=== PATIENT | male | born 1985 | race Caucasian/White ===

== ENCOUNTER 2020-12-01 11:40 | Emergency (ER) | payer OTHER ==
[2020-12-01 12:08] VITALS: BP 131/75; PULSE 77; RESP 18; TEMP 98.6
--- NOTE | 2020-12-01 12:48 | ED ---
Lower Extremity Injury HPI - General Chief Complaint: Extremity Injury, Lower Stated Complaint: rt knee pain Time Seen by Provider: 12/01/20 12:21 Source: patient Mode of arrival: ambulatory Limitations: no limitations - History of Present Illness Initial Comments: Patient is a 35-year-old male presenting to emergency Department with complaints of right knee pain for the past 3 days. He denies any falls or trauma. He states the pain is mostly over the anterior aspect of his knee. He denies any fever or chills, no swelling of the knee. Denies any previous surgeries or injuries of the knee. He states that his employer made him come in to get checked because he saw him limping today. He has no further complaints at this time. His vital signs are stable upon arrival. - Related Data Allergies Allergy/AdvReac Type Severity Reaction Status Date / Time No Known Allergies Allergy Verified 12/01/20 12:08 Review of Systems ROS Statement: Those systems with pertinent positive or pertinent negative responses have been documented in the HPI. ROS Other: All systems not noted in ROS Statement are negative. Past Medical History Past Medical History: No Reported History History of Any Multi-Drug Resistant Organisms: None Reported Past Surgical History: Orthopedic Surgery Past Psychological History: No Psychological Hx Reported Smoking Status: Never smoker Past Alcohol Use History: None Reported Past Drug Use History: None Reported General Exam - General Exam Comments Initial Comments: GENERAL: Patient is well-developed and well-nourished. Patient is nontoxic and in no acute distress. HEAD: Atraumatic, normocephalic. EYES: Pupils equal round and reactive to light, extraocular movements intact, sclera anicteric, conjunctiva are normal. Eyelids were unremarkable. ENT: TMs normal, nares patent, oropharynx clear without exudates. Moist mucous membranes. NECK: Normal range of motion, supple without lymphadenopathy or JVD. LUNGS: Unlabored respirations. Breath sounds clear to auscultation bilaterally and equal. No wheezes rales or rhonchi. HEART: Regular rate and rhythm without murmurs, rubs or gallops. ABDOMEN: Soft, nontender, normoactive bowel sounds. No guarding, no rebound. No masses appreciated. : Deferred MUSCULOSKELETAL: Patient has some mild tenderness over the right patellar tendon, lateral aspect of the knee. There is no swelling, no erythema, no signs of infection. He is neurovascular intact. No clubbing or cyanosis. NEUROLOGICAL: Patient is alert and oriented x 3. Motor and sensory are also intact. Cranial nerves II through XII grossly intact. Symmetrical smile. Normal speech, normal gait. PSYCH: Normal mood, normal affect. SKIN: Warm, Dry, normal turgor, no rashes or lesions noted. Limitations: no limitations Course Vital Signs 12/01/20 12:05 Temperature 98.6 F Pulse Rate 77 Respiratory 18 Rate Blood Pressure 131/75 O2 Sat by Pulse 100 Oximetry Medical Decision Making - Medical Decision Making Patient is a 35-year-old male residing for right anterior knee pain for the past 3 days. No injuries or trauma. His exam is unremarkable, no swelling, no signs of infection. I discussed with patient this is most likely a tendinitis. He is use ice to the area, ibuprofen for any discomfort. He can follow up with his regular doctor. He is in agreement with this plan and care. He is stable for discharge. Disposition Clinical Impression: Tendinitis of right knee Disposition: HOME SELF-CARE Condition: Stable Instructions (If sedation given, give patient instructions): Patellar Tendinitis (ED) Additional Instructions: Please return to the Emergency Department if symptoms worsen or any other concerns. May use ice today at knee, ibuprofen for any discomfort. If symptoms persist follow-up with your regular doctor. Is patient prescribed a controlled substance at d/c from ED?: No Referrals: None,Stated [Primary Care Provider] - 1-2 days
== END 2020-12-01 13:10 | disposition home or self-care (01) ==
LOC: EC 11:40
DX: M76.9 Unspecified enthesopathy, lower limb, excluding foot (principal)
CPT/HCPCS: 99283